=== PATIENT | male | born 1970 | race Caucasian/White ===

== ENCOUNTER 2017-12-25 18:38 | Inpatient (IN) | payer BC, OTHER ==
[~2017-12-25] VITALS: Ht 182.9 cm; Wt 95.3 kg
[2017-12-25] MEDS ORDERED: IBUPROFEN 400 MG TABLET PO PRN (22:45)
[2017-12-25] MEDS ORDERED: MIRALAX 17 GM POWD.PACK PO PRN (22:45)
[2017-12-25] MEDS ORDERED: LOPERAMIDE HCL 2 MG CAPSULE PO PRN ×2 (22:45)
[2017-12-25] MEDS ORDERED: ONDANSETRON 4 MG/2 ML VIAL IM PRN (22:45)
[2017-12-25] MEDS ORDERED: MAG HYDROX/AL HYDROX/SIMETH 30 ML LIQUID UDC PO PRN (22:45)
[2017-12-25] MEDS ORDERED: LORAZEPAM 1 MG TABLET PO PRN ×2 (22:45)
[2017-12-25] MEDS ORDERED: ACETAMINOPHEN 325 MG TABLET PO PRN (22:45)
[2017-12-25] MEDS ORDERED: THIAMINE HCL 200 MG/2 ML VIAL IM ONE (22:45)
[2017-12-25] MEDS ORDERED: MAGNESIUM HYDROXIDE 30 ML LIQUID UDC PO PRN (22:45)
[2017-12-25] MEDS ORDERED: diphenhydrAMINE 50 MG CAPSULE PO PRN (22:45)
[2017-12-25] MEDS ORDERED: LORAZEPAM 2 MG/1 ML VIAL IM PRN (22:45)
[2017-12-25] MEDS ORDERED: ONDANSETRON ODT 4 MG TAB.RAPDIS SL PRN (22:45)
[2017-12-25] MEDS ORDERED: hydrALAZINE HCL 50 MG TABLET PO PRN (23:00)
--- NOTE | 2017-12-25 23:30 | NUR ---
Pre admission note Pt seen in intake office. Pt appears intoxicated, flushed, and sweaty but in stable condition. V/S WNL. Policies on medication disposal explained to and understood by patient. Will admit to unit. Will continue to monitor.
--- NOTE | 2017-12-25 23:50 | NUR ---
Admission note Pt is a 47 yo male, A+Ox4, presenting to [facility] for ETOH/Benzo withdrawal. Pt has NKA, is on Full code status, and on Regular diet. Pt is 6'0" in height and 210 LBS in weight. Pt has medical HX of Anxiety, Depression, Insomnia, and Gastric sleeve. Pt has family HX of Renal cell Carcinoma and Lung cancer from Mother and Lung cancer and Leukemia from Father. Pt has a primary care provider named Dr. Solano. Pt has been drinking alcohol for 28 years (7 months currently), has reached a level of 475ml champagne/daily, and last drink was 475ml champagne on 12-25-17 @0100. Pt has been taking Valium PO for 1 day, in that 1 day has taken 35-40mg on 12-25-17 @2000. Pt is taking home medications as follows: Lexapro 20mg QD- Last taken 12-25-17 @0900, Topamax 25mg QD- Last taken 12-25-17 @09, and Vitamin B supplement- Last taken 12-25-17 @09. Pt has HX of previous detox/rehab @ [facility] for 90 days in 12/2014 and pt continued sobriety until about 05/2017. This was the patient's last time sober. Pt has never been a cigarette smoker. Pt appears intoxicated, anxious, restless, agitated, flush in face, and sweaty but in stable condition. V/S WNL. Pt states "I need to get back to sober life." Pt states "I tried to detox myself but i realized that i need to go back to treatment and do it right, i really need to be here." Pt states "I'm going to reset my recovery and do the best that i can." Respirations even and unlabored. Will continue to monitor.
[2017-12-25 23:57] LABS: BASOPHILS % (AUTO) 0.4 % (0.0-2.0); EOSINOPHILS # (AUTO) 0.1 K/uL (0.0-0.7); EOSINOPHILS % (AUTO) 1.1 % (0.0-7.0); HEMATOCRIT 44.2 % (36.7-47.1); HEMOGLOBIN 14.4 g/dL (12.5-16.3); LYMPHOCYTES # (AUTO) 1.9 K/uL (20.0-40.0); LYMPHOCYTES % (AUTO) 21.8 % (20.5-51.5); MEAN CORPUSCULAR HGB CONC 33 g/dL (32.5-36.3); MEAN CORPUSCULAR VOLUME 73.9 fL (73.0-96.2); MONOCYTES # (AUTO) 0.8 K/uL (2.0-10.0); MONOCYTES % (AUTO) 8.5 % (0.0-11.0); NEUTROPHILS # (AUTO) 6.1 K/uL (1.8-8.9); NEUTROPHILS % (AUTO) 68.2 % (38.5-71.5); PLATELET COUNT (AUTO) 291 K/uL (152-348); RED BLOOD CELL COUNT(AUTO) 5.99 MIL/uL (4.06-5.63); WHITE BLOOD COUNT (AUTO) 8.9 K/uL (3.6-10.2)
[2017-12-26] VITALS (8 sets, daily range): BP systolic 116–156; BP diastolic 70–96
[2017-12-26 00:15] LABS: ALANINE AMINOTRANSFERASE 59 U/L (16-63); ALKALINE PHOSPHATASE 41 U/L (50-136); AMYLASE 65 U/L (25-115); ASPARTATE AMINOTRANSFERASE 66 U/L (15-37); BILIRUBIN,TOTAL 0.5 mg/dL (0.2-1.0); CARBON DIOXIDE 33 mmol/L (21-32); CHLORIDE 104 mmol/L (98-107); CREATININE 1.4 mg/dL (0.6-1.3); GLUCOSE 82 mg/dL (74-106); MAGNESIUM 2.1 mg/dL (1.8-2.4); POTASSIUM 4.3 mmol/L (3.5-5.1); TOTAL PROTEIN, SERUM 7.4 g/dL (6.4-8.2); UREA NITROGEN, BLOOD 16 mg/dL (7-18)
[2017-12-26 00:23] LABS: ETHANOL < 3 MG/DL (0-0)
[2017-12-26 00:40] LABS: *AMPHETAMINE, URINE NEGATIVE (NEGATIVE); *BARBITURATE, URINE NEGATIVE (NEGATIVE); *CANNABINOID, URINE NEGATIVE (NEGATIVE); *COCCAINE, URINE NEGATIVE (NEGATIVE); *OPIATE, URINE NEGATIVE (NEGATIVE); *PHENCYCLIDINE SCREEN,URINE NEGATIVE (NEGATIVE)
[2017-12-26] MEDS ORDERED: TETR-62 OP (00:46)
[2017-12-26] MEDS ORDERED: PHEN30SP9 MM (00:46)
[2017-12-26] MEDS ORDERED: HYDR26CR TP (00:46)
[2017-12-26] MEDS ORDERED: DIPH25TA62 PO (00:46)
[2017-12-26] MEDS ORDERED: DIAZ5TAB PO (00:46)
[2017-12-26] MEDS ORDERED: ESCI20TA PO (00:46)
[2017-12-26] MEDS ORDERED: SODI30SP6 NS (00:46)
[2017-12-26] MEDS ORDERED: TOPI25TA PO (00:46)
--- NOTE | 2017-12-26 03:45 | NUR ---
PRN Ativan 1mg Pt c/o anxiety and noted with CIWA: 9. PRN Ativan 1mg given and tolerated well. Will reassess within 1 HR. Will continue to monitor.
--- NOTE | 2017-12-26 04:21 | NUR ---
PRN Ativan 1mg Reassessment Medication effective. Pt expresses reduction in anxiety and noted with CIWA: 7. No s/s of ASE noted at this time. Respirations even and unlabored. Will continue to monitor.
[2017-12-26] MEDS: CLONIDINE HCL 0.1 MG TABLET PO PRN ×2 (04:53→12:17)
--- NOTE | 2017-12-26 04:56 | NUR ---
PRN Clonidine and Benadryl Pt noted with B/P 143/88 and c/o inability to sleep. PRN Clonidine and Benadryl given and tolerated well. Will reassess within 1 HR. Will continue to monitor.
--- NOTE | 2017-12-26 05:50 | NUR ---
PRN Clonidine and Benadryl Reassessment Pt noted with B/P 134/85 and is resting well in bed. No s/s of ASE noted at this time. Respirations even and unlabored. Will continue to monitor.
--- NOTE | 2017-12-26 07:00 | NUR ---
End of shift note Newly admitted patient. Pt was continuously noted with anxiety, agitation, and restlessness. Pt remained in room for majority of remainder of shift except to get food from kitchen. Pt has been placed on 5 day Ativan taper to start today. Pt was given PRN Ativan 1mg @0345 and PRN Clonidine and Benadryl @0456. Pt slept for a total of 5 HRS. Last CIWA: 7 @0420. Respirations even and unlabored. Will endorse to day shift nurse.
--- NOTE | 2017-12-26 07:35 | NUR ---
START OF SHIFT Pt is a 47 yr old male AA&Ox4. pt was admitted on 12/25/17 for ETOH/Benzo withdrawal and is on 5 day Ativan taper as ordered. Received report from machinist 2nd shift nurse. Pt received Ativan PRN, Clonidine 0.1mg PO PRN and Benadryl PRN during the night. medication was effective. Pt slept fro 5 hrs. last CIWA score was 7 at 0420. Pt is currently c/o anxiety. Pt is noted fidgety with fine tremors. Skin is intact, warm and moist to touch. Pt is on fall and seizure precautions. Encouraged increase fluid intake for hydration. Will continue to monitor.
[2017-12-26] MEDS: FOLIC ACID 1 MG TABLET PO SCH (08:52)
[2017-12-26] MEDS: THIAMINE HCL 100 MG TABLET PO SCH (08:52)
[2017-12-26] MEDS: LORAZEPAM 1 MG TABLET PO SCH ×5 (08:52→21:26)
[2017-12-26] MEDS: MULTIVITAMINS,THERAPEUTIC TABLET PO SCH (08:52)
[2017-12-26] MEDS ORDERED: TUBERCULIN,PURIF.PROT.DERIV. 5 TU/0.1 ML TEST ID ONE (09:00)
--- NOTE | 2017-12-26 12:17 | NUR ---
PRN GIVEN Pt's BP was noted at 156/96. Pt was given Clonidine 0.1mg PO PRN for Increase BP. Encouraged increase fluid intake. Will continue to monitor.
--- NOTE | 2017-12-26 12:20 | NUR ---
Client prompted client to attend group counseling sessions twice a day, with the next group being at 3:30pm today. Client stated he would attend the next group session.
--- NOTE | 2017-12-26 13:27 | NUR ---
PRN RE-ASSESSMENT Clonidine 0.1mg PO PRN was effect. BP is 116/70. Will continue to monitor.
--- NOTE | 2017-12-26 18:55 | NUR ---
END OF SHIFT Pt is a 47 yr old male AA&Ox4. pt was admitted on 12/25/17 for ETOH/Benzo withdrawal and is on 5 day Ativan taper as ordered. Pt has been cooperative with medication regimen. Pt refused to attend group therapy due to w/d and increase fatigue. Pt has been c/o increase anxiety throughout the day and noted fidgety. Facial sweats and fine tremors are noted. Skin is intact, warm and clammy to touch. Pt received Clonidine 0.1mg PO PRN for increase BP at 1217. Medication was effective. Pt was encouraged increase fluid intake for hydration. Pt is on fall and seizure precautions. Encouraged increase fluid intake for hydration. Last CIWA score was 12 at 1600. Call light is within reach. Endorsed to night worker nurse to continue with care.
--- NOTE | 2017-12-26 19:15 | NUR ---
Start of Shift Note: Patient is a 47 y.o male admitted on 12/25/17 for medically supervised withdrawal from ETOH. Patient is alert & oriented x4. He is ambulatory with a steady gait. Patient noted with increased anxiety and agitation, diaphoresis, reports mild headache, with noticeable hand tremors noted. Patient started today on a 5-day Ativan taper and tolerated well. Pt received PRN Clonidine during day shift. Last CIWA is 12. Pt did not attend groups today d/t withdrawals. Educated pt of importance of group therapy to learn/develop coping skills to prevent relapse. Encourage pt to increase fluid intake. Safety precaution in place. Bed locked in lowest position. Both side rails up. Call light within pt's reach. Will continue to monitor patient.
--- NOTE | 2017-12-26 19:43 | NUR ---
PRN Ativan Patient noted with increase anxiety and agitation, appears flushed, diaphoretic, & reports mild headache. CIWA 14 noted at this time. PRN Ativan 2mg administered as ordered. Will continue to monitor patient.
--- NOTE | 2017-12-26 20:43 | NUR ---
PRN Reassessment Pt verbalized decreased in anxiety & agitation & sweating after medication administration. CIWA 12 noted at this time. Safety measures in place. Will continue to monitor.
[2017-12-26] MEDS: QUETIAPINE FUMARATE 25 MG TABLET PO PRN (21:25)
--- NOTE | 2017-12-26 21:26 | NUR ---
PRN Motrin & Seroquel Patient complained of mild headache. Pt appears restless & anxious in bed. Pt also requesting medication to help him sleep. PRN Motrin & Seroquel administered as ordered. Will monitor for effectiveness of medication.
--- NOTE | 2017-12-26 22:26 | NUR ---
PRN Reassessment PRN medication effective. Patient asleep in bed and appears comfortable. No facial grimacing noted. Safety measures in place. Will continue to monitor patient.
[2017-12-27] VITALS: BP 114/70
[2017-12-27 06:40] LABS: BILIRUBIN,DIRECT 0.2 mg/dL (0.0-0.2); BILIRUBIN,TOTAL 0.7 mg/dL (0.2-1.0); CREATININE 1.2 mg/dL (0.6-1.3); MAGNESIUM 2.1 mg/dL (1.8-2.4); POTASSIUM 4.2 mmol/L (3.5-5.1); TOTAL PROTEIN, SERUM 6.4 g/dL (6.4-8.2)
--- NOTE | 2017-12-27 07:08 | NUR ---
End of Shift Note: Patient is a 47 y.o male admitted on 12/25/17 for medically supervised withdrawal from ETOH. Patient remains alert & oriented x4. He was noted with increased anxiety and agitation, diaphoresis, mild headache & hand tremors. Pt continues on his Ativan taper and tolerating well. Initial CIWA 14. Pt received PRN Ativan 2mg for s/s of withdrawal, Motrin for mild headache and Seroquel for sleep and was effective. CIWA 12. Non-pharmacological intervention utilized, encouraged to attend group therapies for relapse prevention. Vitals noted WNL. Pt remains compliant with medications and treatment plan. Fluid intake: 500 ml, Voided 1x with no bowel movement. Encourage pt to increase fluid intake for hydration. Pt slept for a total of 9 hours. All needs attended & met. Safety measures in place. Will endorse pt to day shift nurse.
[2017-12-27 07:10] LABS: HEPATITIS B SURFACE AG Negative (Negative)
--- NOTE | 2017-12-27 07:15 | NUR ---
Start of Shift L D Rn received report on 47 year old male admitted to [facility] on 12/25/17 for medical management of ETOH withdrawals. Pt reports NKA, full code and regular diet. Endorses no PMH, with a PPH of anxiety, depression and Bipolar. Pt has been started on an Ativan taper and is tolerating well. Last CIWA 12 per NOC report. Pt administered Ativan(withdrawal symptoms), Motrin(pain) and Seroquel(insomnia) per NOC report. L D Rn encounters pt in pts room resting with eyes closed and rise and fall of chest noted. Even and unlabored respirations. Bed in low position with wheels locked and side rails up x2. Will continue to monitor, support and encourage according to plan of care.
[2017-12-27 08:30] VITALS: BP 133/78
[2017-12-27] MEDS: FOLIC ACID 1 MG TABLET PO SCH (09:21)
[2017-12-27] MEDS: LORAZEPAM 1 MG TABLET PO SCH ×3 (09:21→20:41)
[2017-12-27] MEDS: THIAMINE HCL 100 MG TABLET PO SCH (09:21)
[2017-12-27] MEDS: MULTIVITAMINS,THERAPEUTIC TABLET PO SCH (09:21)
[2017-12-27] MEDS: ESCITALOPRAM OXALATE 10 MG TABLET PO SCH (09:22)
[2017-12-27] MEDS ORDERED: HYDROXYZINE PAMOATE 25 MG CAPSULE PO PRN (11:30)
[2017-12-27 12:13] VITALS: BP 130/78
--- NOTE | 2017-12-27 12:30 | NUR ---
Endorsement Manager Underwriting provided report on 47 year old male admitted to [facility] on 12/25/17 for medical management of ETOH withdrawals. Pt reports NKA, full code and regular diet. Endorses no PMH, with a PPH of anxiety, depression and Bipolar. Pt has been started on an Ativan taper and is tolerating well. Last CIWA 10 at 1200. No PRN medication administered by law writer. Pt is somnolent, but A/O x4 when assessed by law writer. Makes needs known. Flat affect with depressed mood. Anxious with poor attention span. Polite and cooperative. Bed in low position with wheels locked and side rails up x2.
--- NOTE | 2017-12-27 12:31 | NUR ---
Assumed Care: Assumed care for the patient at this time. Patient is a 47 year old male admitted for ETOH withdrawal who was placed on a 5-day Ativan taper as ordered. Patient is tolerating taper well. No PRNs given. Last CIWA 10. Patient is in his room. Affect is flat. Encouraged to socialize with his peers and attend group for social interaction. Will continue to monitor closely.
[2017-12-27] MEDS ORDERED: hydrALAZINE HCL 50 MG TABLET PO PRN (14:00)
[2017-12-27 16:00] VITALS: BP 118/79
--- NOTE | 2017-12-27 19:01 | NUR ---
End of Shift Notes: Patient continues to be on 5-day Ativan taper as ordered. No adverse reactions noted. Patient is currently tolerating taper well. VS monitored closely. No significant abnormalities noted. Withdrawal symptoms were closely monitored. Initial CIWA 10, patient presented with anxiety, agitation , tremors and sweats. Last CIWA 8. Per patient, Ativan has been effective in reducing his withdrawal symptoms. Compliant with care and treatment. Patient requires encouragement to attend activities and socialize with his peers due to self isolation. All needs met and attended. Will continue to monitor.
--- NOTE | 2017-12-27 19:15 | NUR ---
Start of Shift Note: Patient is a 47 y.o male admitted on 12/25/17 for medically supervised withdrawal from ETOH. Patient is alert & oriented x4. He is ambulatory with a steady gait. Patient continues to present with anxiety, agitation, diaphoresis and noticeable hand tremors. Patient continues on his 5-day Ativan taper and tolerated well. No PRN medications received during day shift. Last CIWA is 8. Pt did not attend groups today d/t withdrawals. Educated pt of importance of group therapy to learn/develop coping skills to prevent relapse. Encourage pt to increase fluid intake. Educated patient of current plan of care for the night and medication regimen. Safety precaution in place. Bed locked in lowest position. Both side rails up. Call light within pt's reach. Will continue to monitor patient.
[2017-12-27 20:00] VITALS: BP 124/78
[2017-12-27] MEDS: PROPRANOLOL HCL 20 MG TABLET PO SCH (20:41)
[2017-12-27] MEDS: GABAPENTIN 300 MG CAPSULE PO SCH (20:41)
[2017-12-27] MEDS: QUETIAPINE FUMARATE 25 MG TABLET PO PRN (20:41)
--- NOTE | 2017-12-27 20:41 | NUR ---
PRN Seroquel Patient complaining of inability to fall asleep. PRN Seroquel administered as ordered. Will continue to monitor patient.
--- NOTE | 2017-12-27 21:41 | NUR ---
PRN Reassessment Patient asleep in bed and appears comfortable. No shortness of breath noted. Respiration even & unlabored. Safety measures in place. Will continue to monitor patient.
--- NOTE | 2017-12-28 07:03 | NUR ---
End of Shift Note: Patient remains alert & oriented x4. Pt continues to present increased anxiety and agitation, diaphoresis & hand tremors. Pt continues on his Ativan taper and tolerating well. Last CIWA 12. Pt received PRN Seroquel for sleep and was effective. Non-pharmacological intervention utilized, encouraged to attend group therapies for relapse prevention. Vitals noted WNL. Pt remains compliant with medications and treatment plan. Fluid intake: 1396 ml, Voided 2x with 1x bowel movement. Encourage pt to increase fluid intake for hydration. Pt slept for a total of 9 hours. All needs attended & met. Safety measures in place. Will endorse pt to day shift nurse.
--- NOTE | 2017-12-28 07:46 | NUR ---
Start of shift note; Received report from night nurse. Patient is a 47 year old male admitted on 12/25/17 for ETOH withdrawals. Patient was placed on a 5 day Ativan taper, no adverse reaction noted. Patient's last CIWA is 12 per endorsement. Educated patient regarding the importance of compliance to treatment and medication regime. Encouraged patient to participate in group activities and therapy. All safety measures secured. Will continue to monitor patient.
[2017-12-28 08:00] VITALS: BP 111/74
[2017-12-28] MEDS ORDERED: LORAZEPAM 1 MG TABLET PO SCH ×2 (09:00→21:00)
[2017-12-28] MEDS: ESCITALOPRAM OXALATE 10 MG TABLET PO SCH (09:16)
[2017-12-28] MEDS: THIAMINE HCL 100 MG TABLET PO SCH (09:16)
[2017-12-28] MEDS: MULTIVITAMINS,THERAPEUTIC TABLET PO SCH (09:16)
[2017-12-28] MEDS: GABAPENTIN 300 MG CAPSULE PO SCH ×2 (09:16→20:23)
[2017-12-28] MEDS: PROPRANOLOL HCL 20 MG TABLET PO SCH ×2 (09:16→20:24)
[2017-12-28] MEDS: FOLIC ACID 1 MG TABLET PO SCH (09:17)
[2017-12-28 12:00] VITALS: BP 107/62
[2017-12-28] MEDS: LORAZEPAM 1 MG TABLET PO SCH ×2 (12:21→16:08)
--- NOTE | 2017-12-28 13:55 | NUR ---
AMA note; Patient left AMA. Patient refused to comply to treatment and unit protocols. Patient educated about the risks and consequences of leaving AMA, patient verbalized understanding but was adamant about leaving. Multiple staff members including MD , patient advocates, wide area network systems administrator and nurses attempted to reason with patient without any success. VS WN, skin is intact and denied any suicidal and homicidal ideations. MD was notified. AMA forms explained and signed. Patient was given a list of community resources. All belongings and home medications returned to patient. Patient left facility AMA on 12/28/17 at 1355. Addendum: 12/28/17 at 1411 by MARCELO BAUER LVN DISREGARD ABOVE NOTE, WRONG PATIENT DOCUMENTATION
--- NOTE | 2017-12-28 14:00 | NUR ---
PRN medication; Patient is complaining of anxiety manifested by patient pacing back and forth in the room. PRN Vistaril 25 mg PO given to patient for anxiety. Will continue to monitor patient for effectiveness of medication.
--- NOTE | 2017-12-28 15:00 | NUR ---
Re-assessment; Patient appears less anxious, patient also verbalized that he feels more comfortable. PRN Vistaril noted to be effective.
[2017-12-28 16:00] VITALS: BP 117/78
--- NOTE | 2017-12-28 18:46 | NUR ---
End of shift note; Patient is AOX4, appears anxious , complaining of diaphoresis, chills, stomach cramps and restlessness. Patient continues on Ativan taper. Medications were noted to be effective in helping reduce withdrawal symptoms. Patient remained compliant with treatment plan and medication regime. Patient participated in group therapy and activities. Patient's last CIWA score is 8 at 1600. Patient received PRN Vistaril for anxiety noted to be effective. All safety measures secured. Met all needs.
--- NOTE | 2017-12-28 19:15 | NUR ---
Start of Shift Note: Patient is a 47 y.o male admitted for ETOH withdrawal. Patient is alert & oriented x4. He is ambulatory with a steady gait. Patient has an anxious & depressed mood, appears disheveled and unkempt. Patient continues to present with anxiety, agitation, noticeable hand tremors & has moist/clammy skin. Patient continues on his 5-day Ativan taper and tolerated well. PRN Vistaril received for anxiety during day shift. Last CIWA is 8. Pt continues to be isolative and withdrawn. He did not attend groups today, continue to educate pt of importance of group therapy to learn/develop coping skills to prevent relapse. Encourage pt to increase fluid intake. Educated patient of current plan of care for the night and medication regimen. Safety precaution in place. Bed locked in lowest position. Both side rails up. Call light within pt's reach. Will continue to monitor patient.
[2017-12-28 20:00] VITALS: BP 136/78
[2017-12-28] MEDS: IBUPROFEN 400 MG TABLET PO PRN (20:24)
[2017-12-28] MEDS: QUETIAPINE FUMARATE 25 MG TABLET PO PRN (20:24)
--- NOTE | 2017-12-28 20:24 | NUR ---
PRN Seroquel & Motrin Patient complaining of inability to fall asleep and reports 4/10 headache. Pt appears restless in bed. PRN Seroquel & Motrin administered as ordered. Will continue to monitor patient.
--- NOTE | 2017-12-28 21:24 | NUR ---
PRN Reassessment Patient still awake at this time. Pt in bed watching TV. Pt verbalized relief from headache after medication administration. Safety measures in place. Will continue to monitor patient.
[2017-12-29 04:00] VITALS: BP 120/76
--- NOTE | 2017-12-29 07:09 | NUR ---
End of Shift Note: Patient remains alert & oriented x4. Pt continues to present with anxiety agitation, diaphoresis, mild headache and hand tremors. Pt continues on his Ativan taper and tolerating well. Last CIWA 8. Pt received PRN Seroquel for sleep and Motrin for headache and was effective. Per pt, taper medications is effective in reducing withdrawal symptoms. Non-pharmacological intervention utilized, encouraged to attend group therapies for relapse prevention. Vitals noted WNL. Pt remains compliant with medications and treatment plan. Fluid intake: 500 ml, Voided 2x with no bowel movement. Encourage pt to increase fluid intake for hydration. Pt slept for a total of 8 hours. All needs attended & met. Safety measures in place. Will endorse pt to day shift nurse.
--- NOTE | 2017-12-29 07:45 | NUR ---
START OF SHIFT Rcvd endorse from ongoing nurse, client is in bed, client is a/o x 4, he appears disheveled, unshaven. he presents with anxious mood, flat affect, flushed face, tremors felt, and clammy skin. Client's room noted with scattered open snack bags, spilled water on the floor, primary nurse cleaned room and encourage client to maintain his room free of spills to prevent a fall. Client reports feeling anxiety, headache, decreased appetite, abdominal cramps, sense of panic and fatigue. Encourage client to increase PO fluid to maintain hydration and facilitate detox. Encourage client to attend group therapy to learn skills to maintain sober. Last CIWA 8 @ 2200. Modified 6 day Ativan (4th day). Client slept 8 hrs. Seizure precautions rendered. Call light within reach.
[2017-12-29 08:00] VITALS: BP 106/62
[2017-12-29] MEDS: FOLIC ACID 1 MG TABLET PO SCH (09:00)
[2017-12-29] MEDS: ESCITALOPRAM OXALATE 10 MG TABLET PO SCH (09:00)
[2017-12-29] MEDS ORDERED: LORAZEPAM 1 MG TABLET PO SCH ×3 (09:00→21:00)
[2017-12-29] MEDS: GABAPENTIN 300 MG CAPSULE PO SCH ×3 (09:00→20:34)
[2017-12-29] MEDS: PROPRANOLOL HCL 20 MG TABLET PO SCH ×2 (09:00→20:35)
[2017-12-29] MEDS: THIAMINE HCL 100 MG TABLET PO SCH (09:00)
[2017-12-29] MEDS: MULTIVITAMINS,THERAPEUTIC TABLET PO SCH (09:01)
[2017-12-29 12:00] VITALS: BP 138/93
[2017-12-29 16:54] VITALS: BP 112/55
--- NOTE | 2017-12-29 19:20 | NUR ---
END OF SHIFT Endorse client to incoming nurse, client is a/o x 4, he continue to present with anxious mood, flat affect, flushed face, tremors felt, clammy skin, headache, abdominal cramps, sense of panic and fatigue. Adequate PO fluid intake 1296mL, void x 3, stool x 1. Client consumes 50% of meals. Client is not compliant with group therapy. Last CIWA 12 @ 1600. Seizure precautions rendered. Call light within reach
--- NOTE | 2017-12-29 19:30 | NUR ---
Start of Shift Pt is a 47 y/o male admitted 12/25/17 for medically managed withdrawal/detox from ETOH. Pt is found laying in bed, awakens immediately on my entrance into room. Pt cooperative, depressed, sad looking but able to answer questions and respond appropriately to commands. Hand tremulous, forehead moist C/o mild H/A, refuses medication at this time, says to hold until evening meds administered. Evening meds reviewed with Pt, Thelma requested. Will continue to monitor for shift, promptly attending to all patient needs.
[2017-12-29 20:00] VITALS: BP 142/87
[2017-12-29] MEDS ORDERED: IBUP-1953 PO (20:19)
[2017-12-29] MEDS ORDERED: HYDR-3895 PO (20:19)
[2017-12-29] MEDS ORDERED: GABA-534 PO ×2 (20:19)
[2017-12-29] MEDS ORDERED: PROP20TA19 PO (20:19)
[2017-12-29] MEDS: IBUPROFEN 400 MG TABLET PO PRN (20:34)
--- NOTE | 2017-12-29 20:34 | NUR ---
PRN Med Motrin 400mg PO given for H/A 01/02 with evenig meds. Will continue to monitor, reassessing in 1 hour, and promptly attending to all patient needs
--- NOTE | 2017-12-29 21:34 | NUR ---
PRE Reassessment Motrin 400mg PO given for H/A 01/02 1 hour prior. Currently pt reports H/A improved, 10/05. Med effective. Will continue to monitor, promptly attending to all patient needs.
[2017-12-29] MEDS: QUETIAPINE FUMARATE 25 MG TABLET PO PRN (22:55)
--- NOTE | 2017-12-29 22:55 | NUR ---
PRN Med Seroquel 50mg PO requested by patient for insomnia. Will continue to monitor, reassessing in 1 hour, and promptly attending to all patient needs
--- NOTE | 2017-12-29 23:55 | NUR ---
PRN Reassessment Seroquel 50mg PO given 1 hour prior for insomnia. At present patient is sleeping, RR 14, even and nonlabored. Will continue to monitor, promptly attending to all patient needs.
--- NOTE | 2017-12-30 | NUR ---
Midnight VS's/CIWA Deferred 0000 VS's and CIWA deferred r/t pt sleeping/refused. RR 14, even and nonlabored. Will continue to monitor, promptly attending to all patient needs.
--- NOTE | 2017-12-30 04:00 | NUR ---
0400 VS's/CIWA Deferred 0400 VS's and CIWA deferred r/t pt sleeping/refused. RR 14, even and nonlabored. Will continue to monitor, promptly attending to all patient needs.
--- NOTE | 2017-12-30 06:48 | NUR ---
End of Shift Pt is a 47 y/o male admitted 12/25/17 for medically managed withdrawal/detox from ETOH. PRN meds for shift include Motrin 400mg PO for H/A and Seroquel 50mg PO for insomnia. Last CIWA was 14 at 2000 hours. Pt slept for 7 hours, with 1000 mls intake, 3 voids and 1 BMs. Will continue to monitor for shift until endorsement, promptly attending to all patient needs.
--- NOTE | 2017-12-30 07:39 | NUR ---
Start of shift note; Received report from night nurse. Patient is a 47 year old male admitted on 12/25/17 for ETOH withdrawals. Patient was placed on a 5 day Ativan taper, no adverse reaction noted. Educated patient regarding the importance of compliance to treatment and medication regime. Encouraged patient to participate in group activities and therapy and to verbalize feelings. Patient appears anxious and agitated still complaining of diaphoresis. All safety measures secured. Will continue to monitor patient.
[2017-12-30 08:00] VITALS: BP 112/68
[2017-12-30] MEDS: ESCITALOPRAM OXALATE 10 MG TABLET PO SCH (08:29)
[2017-12-30] MEDS: THIAMINE HCL 100 MG TABLET PO SCH (08:30)
[2017-12-30] MEDS: PROPRANOLOL HCL 20 MG TABLET PO SCH ×2 (08:30→20:25)
[2017-12-30] MEDS: FOLIC ACID 1 MG TABLET PO SCH (08:30)
[2017-12-30] MEDS: GABAPENTIN 300 MG CAPSULE PO SCH ×3 (08:30→20:26)
[2017-12-30] MEDS: LORAZEPAM 1 MG TABLET PO SCH ×3 (08:30→20:26)
[2017-12-30] MEDS: MULTIVITAMINS,THERAPEUTIC TABLET PO SCH (08:31)
[2017-12-30] MEDS ORDERED: LORAZEPAM 1 MG TABLET PO SCH (09:00)
[2017-12-30 12:00] VITALS: BP 131/81
--- NOTE | 2017-12-30 14:29 | NUR ---
Client was prompted to attend group counseling sessions at 11:00am and at 3:30pm.
--- NOTE | 2017-12-30 14:30 | NUR ---
Nurse note; Patient had an episode of epistaxis while attending group activities. Pressure applied to patient's nose bridge to prevent further bleeding. VS checked, BP 121/63, HR 79, Spo2 98%, respirations 18. Patient denies dizziness or headache. Patient stated " this happened to me before multiple times but it usually stops right away, i will be arely". Instructed patient to notify staff immediately incase he feels dizzy or lightheaded, patient verbalized understanding. safety measures secured.
[2017-12-30 16:00] VITALS: BP 117/75
--- NOTE | 2017-12-30 18:47 | NUR ---
End of shift note; Patient is AOX4, appears anxious , complaining of diaphoresis, chills, stomach cramps and restlessness. Patient continues on Ativan taper. Medications were noted to be effective in helping reduce withdrawal symptoms. Patient remained compliant with treatment plan and medication regime. Patient participated in group therapy and activities. Patient's last CIWA score is 8 at 1600. All safety measures secured. Met all needs.
--- NOTE | 2017-12-30 19:30 | NUR ---
Start of Shift Pt is a 47 y/o male admitted 12/25/17 for medically managed withdrawal/detox from ETOH, Valium. Pt found ambulating in room, cleaning/tidying. Obvious odor in room, on questioning decided shoes are source. Pt cooperative, friendly, able to answer questions and follows commands appropriately. Forehead shows moisture, hand tremors noted. No c/os at present. Will continue to monitor for duration of shift, promptly attending to all patient needs.
[2017-12-30 20:00] VITALS: BP 124/75
[2017-12-30] MEDS: QUETIAPINE FUMARATE 25 MG TABLET PO PRN (20:26)
--- NOTE | 2017-12-30 20:26 | NUR ---
PRN Med Seroquel 50mg PO administered per patient request for insomnia. Will continue to monitor pt, reassessing in 1 hour, and promptly attending to all patient needs
--- NOTE | 2017-12-30 21:26 | NUR ---
PRN Reassessment Seroquel 50mg PO given 1 hour prior for insomnia. At present pt sleeping. Med effective. Will continue to monitor, promptly attending to all pt needs.
--- NOTE | 2017-12-31 | NUR ---
Midnight VS's CIWA Deferred 0000 VS's and CIWA deferred r/t pt sleeping/refused. RR 14, even and nonlabored. Will continue to monitor pt and promptly attend to all pt needs
--- NOTE | 2017-12-31 04:00 | NUR ---
0400 VS's CIWA Deferred 0400 VS's and CIWA deferred r/t pt sleeping/refused. RR 14, even and nonlabored. Will continue to monitor pt and promptly attend to all pt needs
--- NOTE | 2017-12-31 07:16 | NUR ---
End of Shift Pt is a 47 y/o male admitted 12/25/17 for medically managed withdrawal/detox from ETOH, Valium. PRNs for shift include Seroquel 50mg PO. Pt slept for 7 hours, with 855 intake, 1 voids, 0 BMs. Will continue to monitor for duration of shift, promptly attending to all patient needs.
--- NOTE | 2017-12-31 08:00 | NUR ---
End of Shift Pt is a 47 y/o male admitted 12/25/17 for medically managed withdrawal/detox from ETOH, Valium. Pt. is on his last day of his ativan taper. Received pt. in his room awake sitting up in bed watching television. Pt. is pleasant upon approach, makes eye contact and effectively communicates. Pt.'s room is clean. Pt. reports feelings of anxiety. Educated pt. todays plan of care and medication regiment. PRN s during last nights shift included Seroquel 50mg PO. Pt slept for 7 hours, with 855 intake, 1 voids, 0 BM s. Last CIWA's scre was 8. Will continue to monitor pt. for safety and behavioral issues.
[2017-12-31] MEDS ORDERED: LORAZEPAM 1 MG TABLET PO SCH (09:00)
[2017-12-31] MEDS: FOLIC ACID 1 MG TABLET PO SCH (09:24)
[2017-12-31] MEDS: GABAPENTIN 300 MG CAPSULE PO SCH ×3 (09:24→21:27)
[2017-12-31] MEDS: THIAMINE HCL 100 MG TABLET PO SCH (09:24)
[2017-12-31] MEDS: MULTIVITAMINS,THERAPEUTIC TABLET PO SCH (09:24)
[2017-12-31] MEDS: ESCITALOPRAM OXALATE 10 MG TABLET PO SCH (09:24)
[2017-12-31 09:29] VITALS: BP 117/62
[2017-12-31] MEDS: PROPRANOLOL HCL 20 MG TABLET PO SCH ×2 (09:49→21:27)
[2017-12-31 12:00] VITALS: BP 128/77
[2017-12-31 16:51] VITALS: BP 111/64
--- NOTE | 2017-12-31 18:35 | NUR ---
End of Shift Pt is a 47 y/o male admitted 12/25/17 for medically managed withdrawal/detox from ETOH, Valium. Pt. is on his last day of his ativan taper. Pt. compliant with medication regiment. No PRN's given during shift. Pt. able to make his needs known. Pt. attended units groups and activities. Last CIWA's scre was 8. Pt. had 1100 ml of intake, voided X 5 and had 1 BM. Pt.'s side rails up and padded. Will continue to monitor pt. for safety and behavioral issues.
--- NOTE | 2017-12-31 19:30 | NUR ---
Start of Shift Pt is a 47 y/o male admitted 12/25/17 for medically managed withdrawal/detox from ETOH/ Valium, to be d/cd 01/01/18 to 30 day rehab in [place]. Pt found resting in bed in room, arouses on nurse entry. Cooperative, friendly, able to answer questions and follow commands appropriately. Discussed d/c in am, plans after. Pt appears hopeful. No c/os at current time. Evening meds reviewed with Seroquel 50mg PO requested. Will continue to monitor, promptly attending to all needs.
[2017-12-31 20:00] VITALS: BP 140/88
[2017-12-31] MEDS: QUETIAPINE FUMARATE 25 MG TABLET PO PRN (21:26)
--- NOTE | 2017-12-31 21:26 | NUR ---
PRN Med Seroquel 50mg PO given per pt request for insomnia. Will continue to monitor, reassessing in 1 hour, and promptly attending to all patient needs.
--- NOTE | 2017-12-31 21:26 | NUR ---
PRN Reassessment Seroquel 50mg PO given 1 hour prior. At present pt is sleeping. Med effective. RR 14, even and non labored. Will continue to monitor, promptly attending to all pt needs
--- NOTE | 2018-01-01 | NUR ---
VS's CIWA Deferred Midnight VS's CIWA deferred r/t pt sleeping/refused. RR 14, even and nonlabored. Will continue to monitor, promptly attending to all pt needs.
--- NOTE | 2018-01-01 04:00 | NUR ---
VS's CIWA Deferred 0400 VS's CIWA deferred r/t pt sleeping/refused. RR 14, even and nonlabored. Will continue to monitor, promptly attending to all pt needs.
--- NOTE | 2018-01-01 06:35 | NUR ---
End of Shift Pt is a 47 y/o male admitted 12/25/17 for medically managed withdrawal/detox from ETOH/ Valium, to be d/cd 01/01/18 to 30 day rehab in [place]. Hx of Depression, Anxiety, Insomnia, Pt claims NKA, Full Code status and regular diet. Last CIWA score _5 at 2000 hours, midnight and 0400 deferred. PRN meds for shift included Seroquel 50mg PO . Pt appears rested, drowsy, speech normal and thought patterns normal. Eye contact direct. Pt slept for 8 hours, with 800 intake, 1 voids and 0 BM. Will continue to monitor until giving endorsement , promptly attending to all needs.
--- NOTE | 2018-01-01 07:20 | NUR ---
START OF SHIFT : PATIENT IS A 47 YR OLD MALE ADMITTED TO [facility] ON 12/25/17 FOR A MEDICALLY SUPERVISED WITHDRAWAL FROM ALCOHOL AND BENZODIAZEPINES. HE HAS COMPLETED A MODIFIED 6 DAY ATIVAN TAPER AND IS TO BE DISCHARGED THIS AM TO " [facility] ". PATIENT SLEPT FOR 8 HOURS LAST NIGHT, PRN SEROQUEL WAS GIVEN AND LAST CIWA WAS 5 @ 8PM. PATIENT IS AWAKE IN BED AT THIS TIME AND HAS NO REQUESTS, WILL CONTINUE TO FOLLOW DISCHARGE ORDERS.
[2018-01-01 08:00] VITALS: BP 130/83
[2018-01-01] MEDS: MULTIVITAMINS,THERAPEUTIC TABLET PO SCH (08:41)
[2018-01-01 08:42] VITALS: BP 130/83
[2018-01-01] MEDS: THIAMINE HCL 100 MG TABLET PO SCH (08:42)
[2018-01-01] MEDS: GABAPENTIN 300 MG CAPSULE PO SCH (08:42)
[2018-01-01] MEDS: ESCITALOPRAM OXALATE 10 MG TABLET PO SCH (08:42)
[2018-01-01] MEDS: PROPRANOLOL HCL 20 MG TABLET PO SCH (08:42)
[2018-01-01] MEDS: FOLIC ACID 1 MG TABLET PO SCH (08:43)
--- NOTE | 2018-01-01 09:28 | NUR ---
DISCHARGE NOTE : PATIENT HAS SIGNED AND DATED ALL DC PAPERWORK, ALL PRESCRIPTIONS AND BELONGINGS RETURNED TO PATIENT. PT STATES NO SI/HI AT THIS TIME. VS STABLE : BP 130/83, HR 66, RR 18, T 98.3 O2 99%.CIWA 4 PATIENT AMBULATED OFF THE UNIT @ 0928 AND WAS PICKED UP AT [facility] BY PRIVATE CAR " [facility] [facility] " FOR TRANSPORT TO " [facility] ".
== END 2018-01-01 09:30 | disposition other institution (70) | DRG 895 ==
LOC: SRC 22:36
PROVIDERS: ADMIT Internal Medicine; ATTEND Internal Medicine
PROC: HZ2ZZZZ Detoxification Services for Substance Abuse Treatment (ICD-10-PCS; principal; 2017-12-25)
PROC: HZ41ZZZ Group Counseling for Substance Abuse Treatment, Behavioral (ICD-10-PCS; 2017-12-26)
DX: F13.230 Sedative, hypnotic or anxiolytic dependence with withdrawal, uncomplicated (principal); E87.3 Alkalosis; F33.2 Major depressive disorder, recurrent severe without psychotic features; N17.9 Acute kidney failure, unspecified; I15.9 Secondary hypertension, unspecified; F10.230 Alcohol dependence with withdrawal, uncomplicated; K70.10 Alcoholic hepatitis without ascites; Y90.0 Blood alcohol level of less than 20 mg/100 ml; F41.9 Anxiety disorder, unspecified; G47.00 Insomnia, unspecified; Z80.6 Family history of leukemia; Z80.51 Family history of malignant neoplasm of kidney; Z80.1 Family history of malignant neoplasm of trachea, bronchus and lung; F11.11 Opioid abuse, in remission; E86.0 Dehydration; Z81.1 Family history of alcohol abuse and dependence
CPT/HCPCS: 36415; 70030-TC; 80307; 80346; 83735; 85025; 86580; 86592; 86705; 86803; 87340; 87806; 93005; G0480; Q0163